=== PATIENT | female | born 1990 | race Caucasian/White ===

== ENCOUNTER 2016-10-29 20:18 | Emergency (ER) | payer OTHER ==
[~2016-10-29] VITALS: Ht 162.6 cm; Wt 56.7 kg
[~2016-10-29 20:18] MED LIST: CLINDAMYCIN HC150 MG ORAL; IBUPROFEN600 MG ORAL; LOTRISONE CREAM15 GM TP; NKM; PERCOCET 5-3251 EACH ORAL; ZOFRAN4 M3 ORAL
[2016-10-29] MEDS ORDERED: Dicyclomine HCl 10mg/5ml oral soln ORAL ONE (21:00)
[2016-10-29] MEDS ORDERED: Lidocaine 2% Visc 15ml soln ORAL ONE (21:00)
[2016-10-29] MEDS ORDERED: Mylanta II UD 30ml ORAL ONE (21:00)
[2016-10-29 22:07] LABS: BASOPHILS % (AUTO) 1.3 % (0.0-2.0); EOSINOPHILS % (AUTO) 1.3 % (0.0-3.0); MEAN CORPUSCULAR VOLUME 94 FL (80-99); MEAN PLATELET VOLUME 6.6 FL (6.5-10.1); MONOCYTES % (AUTO) 13.4 % (1.0-10.0); NEUTROPHILS % (AUTO) 37.1 % (45.0-75.0); PLATELET COUNT 277 K/UL (150-450); RED CELL DISTRIBUTION WIDTH 11.8 % (11.6-14.8); WHITE BLOOD COUNT 5.4 K/UL (4.8-10.8)
[2016-10-29 22:11] LABS: APPEARANCE,URINE CLEAR; KETONES,URINE NEGATIVE (NEGATIVE); LEUKOCYTE ESTERASE ,URINE NEGATIVE (NEGATIVE); NITRITE,URINE NEGATIVE (NEGATIVE); PH,URINE 8 (4.5-8.0); PROTEIN,URINE NEGATIVE (NEGATIVE); UROBILINOGEN,URINE NORMAL MG/DL (0.0-1.0)
[2016-10-29 22:16] LABS: PROTHROMBIN TIME 10.9 SEC (9.30-11.50)
[2016-10-29] MEDS ORDERED: BENTYL10 MG ORAL (22:20)
[2016-10-29] MEDS ORDERED: PERCOCET 5-3251 EACH ORAL (22:27)
[2016-10-29 22:28] LABS: ALANINE AMINOTRANSFERASE 18 U/L (3-33); ALBUMIN/GLOBULIN RATIO 1.9 (1.0-2.7); ANION GAP 14 (5-15); ASPARTATE AMINO TRANSFERASE 19 U/L (5-40); CALCIUM 9.9 mg/dL (8.6-10.2); CARBON DIOXIDE 26 mEQ/L (20-30); CHLORIDE 96 mEQ/L (98-107); CREATININE 0.7 mg/dL (0.5-0.9); GLOMERULAR FILTRATION RATE > 60 mL/min (>60); HEMOLYSIS 6; LIPASE 34 U/L (< 60); POTASSIUM 3.7 mEQ/L (3.4-4.9); SODIUM 136 mEQ/L (135-145)
[2016-10-29 22:45] VITALS: BP 94/47
--- NOTE | 2016-10-29 22:46 | Emergency Room Report ---
History of Present Illness General Chief Complaint: Abdominal Pain Source: Patient Present Illness HPI Patient is a 25-year-old female presented after increased abdominal pain. Patient gradual onset of symptoms of the past few weeks. Patient had the reported increased pain with food.. She prior history of gallstones. Patient presented to have reevaluation. The patient not having subjective. She had not been vomiting. She reported having some nausea. She been taking Percocet for pain. Allergies: Coded Allergies: ACETAMINOPHEN (Verified Allergy, Mild, Hives, 07/25/13) HYDROCODONE (Verified Allergy, Mild, Hives, 07/25/13) MORPHINE (Verified Allergy, Mild, Hives, 07/25/13) PENICILLINS (Verified Allergy, Mild, Hives, 07/25/13) Patient History Past Medical History: see triage record Last Menstrual Period: A MONTH AGO Now: No : 0 Para: 0 Reviewed Nursing Documentation: PMH: Agreed, PSxH: Agreed Review of Systems All Other Systems: negative except mentioned in HPI Physical Exam Vital Signs Date Time Temp Pulse Resp B/P Pulse Ox O2 Delivery O2 Flow Rate FiO2 10/29/16 20:39 97.5 73 18 119/70 98 Room Air Sp02 EP Interpretation: reviewed, normal General Appearance: normal inspection, well appearing, no apparent distress, alert, GCS 15 Head: atraumatic ENT: normal ENT inspection, hearing grossly normal, normal voice Neck: normal inspection, full range of motion, supple, no bony tend Respiratory: normal inspection, lungs clear, normal breath sounds, no respiratory distress, no retraction, no wheezing Cardiovascular #1: regular rate, rhythm, no edema Gastrointestinal: normal inspection, normal bowel sounds, non tender, soft, no guarding, no hernia Genitourinary: no CVA tenderness Musculoskeletal: normal inspection, back normal, normal range of motion Neurologic: normal inspection, alert, oriented x3, responsive, advanced manufacturing technician III-XII nml as tested, motor strength/tone normal, speech normal Psychiatric: normal inspection, judgement/insight normal, mood/affect normal Skin: normal inspection, normal color, no rash Medical Decision Making Diagnostic Impression: Primary Impression: Biliary colic ER Course Patient presented for abdominal pain. Differential diagnoses included ischemic bowel, appendicitis, perforated viscus, abdominal aortic aneurysm, inferior myocardial infarction, viral gastroenteritis. Because of complexity of patient' s case laboratory testing and imaging studies were ordered. Laboratory testing was notable for normal white blood count. The patient's liver function tests were unremarkable. There is no to minimal elevation of her bilirubin. The patient was noted to have a gallbladder ultrasound with normal common bile duct there multiple gallstones noted. There is no pericholic fluid. Brown sign was negative.The patient is advised followup with Dr. Rosado for surgical referral. The patient is advised to return if she had having increased jaundice persistent vomiting worsening pain or high fever. Labs Test 10/29/16 21:45 White Blood Count 5.4 K/UL (4.8-10.8) Red Blood Count 3.80 M/UL (4.20-5.40) Hemoglobin 12.1 G/DL (12.0-16.0) Hematocrit 35.7 % (37.0-47.0) Mean Corpuscular Volume 94 FL (80-99) Mean Corpuscular Hemoglobin 32.0 PG (27.0-31.0) Mean Corpuscular Hemoglobin Concent 34.0 G/DL (32.0-36.0) Red Cell Distribution Width 11.8 % (11.6-14.8) Platelet Count 277 K/UL (150-450) Mean Platelet Volume 6.6 FL (6.5-10.1) Neutrophils (%) (Auto) 37.1 % (45.0-75.0) Lymphocytes (%) (Auto) 47.0 % (20.0-45.0) Monocytes (%) (Auto) 13.4 % (1.0-10.0) Eosinophils (%) (Auto) 1.3 % (0.0-3.0) Basophils (%) (Auto) 1.3 % (0.0-2.0) Prothrombin Time 10.9 SEC (9.30-11.50) Prothromb Time International Ratio 1.0 (0.9-1.1) Activated Partial Thromboplast Time 30 SEC (23-33) Urine Color Pale yellow Urine Appearance Clear Urine pH 8 (4.5-8.0) Urine Specific [place] 1.010 (1.005-1.035) Urine Protein Negative (NEGATIVE) Urine Glucose (UA) Negative (NEGATIVE) Urine Ketones Negative (NEGATIVE) Urine Occult Blood Negative (NEGATIVE) Urine Nitrite Negative (NEGATIVE) Urine Bilirubin Negative (NEGATIVE) Urine Urobilinogen Normal MG/DL (0.0-1.0) Urine Leukocyte Esterase Negative (NEGATIVE) Sodium Level 136 mEQ/L (135-145) Potassium Level 3.7 mEQ/L (3.4-4.9) Chloride Level 96 mEQ/L (98-107) Carbon Dioxide Level 26 mEQ/L (20-30) Anion Gap 14 (5-15) Blood Urea Nitrogen 5 mg/dL (7-23) Creatinine 0.7 mg/dL (0.5-0.9) Estimat Glomerular Filtration Rate > 60 mL/min (>60) Glucose Level 96 mg/dL (74-106) Calcium Level 9.9 mg/dL (8.6-10.2) Total Bilirubin 1.4 mg/dL (0.0-1.2) Direct Bilirubin 0.2 mg/dL (0.1-0.3) Aspartate Amino Transf (AST/SGOT) 19 U/L (5-40) Alanine Aminotransferase (ALT/SGPT) 18 U/L (3-33) Alkaline Phosphatase 57 U/L (35-104) Total Protein 8.0 g/dL (6.6-8.7) Albumin 5.3 g/dL (3.5-5.2) Globulin 2.7 g/dL Albumin/Globulin Ratio 1.9 (1.0-2.7) Lipase 34 U/L (< 60) Last Vital Signs Date Time Temp Pulse Resp B/P Pulse Ox O2 Delivery O2 Flow Rate FiO2 10/29/16 20:39 97.5 73 18 119/70 98 Room Air Status: improved Disposition: HOME, SELF-CARE Condition: Stable Scripts Oxycodone/Acetaminophen 5-325* (PERCOCET 5-325 MG TABLET*) 1 Each Tablet 1 TAB ORAL Q4H Y for For Pain, #10 TAB 0 Refills Prov: Jose Busch 10/29/16 Dicyclomine Hcl* (BENTYL*) 10 Mg Capsule 10 MG ORAL FOUR TIMES A DAY, #30 CAP Prov: Jose Busch 10/29/16 Referrals: FREDERICK ROSADO MD (PCP) Patient Instructions: Biliary Colic Jose Busch Oct 29, 2016 22:46
[2016-10-29 22:47] VITALS: BP 94/47
[2016-10-29 22:49] LABS: BILIRUBIN,DIRECT 0.2 mg/dL (0.1-0.3)
--- NOTE | 2016-10-30 10:39 | Diagnostic Imaging Report ---
Indication:Abdominal pain Technique: Grayscale and duplex Doppler imaging of the abdomen performed. Comparison: None Findings: Gallbladder is distended and there are gallstones present. Sonographic Brown's is positive per technologist. CBD is 5 mm. The liver, demonstrated part of the pancreas, aorta and IVC, both kidneys, spleen appear unremarkable. There is no biliary ductal dilatation identified. Doppler evaluation of the main portal vein shows patency. There is no ascites. No hydronephrosis seen. Impression: Gallstones with positive sonographic Brown's sign suggestive of cholecystitis. Please correlate clinically.
== END 2016-10-29 22:55 | disposition home or self-care (01) ==
LOC: EMR 20:57
DX: K80.50 Calculus of bile duct without cholangitis or cholecystitis without obstruction (principal); Z88.6 Allergy status to analgesic agent; Z88.0 Allergy status to penicillin
CPT/HCPCS: 36415; 76700; 80053; 81003; 81025; 82248; 83690; 85025; 85610; 85730; 99284

== ENCOUNTER 2017-08-05 09:57 | Emergency (ER) | payer OTHER ==
[~2017-08-05] VITALS: Ht 160 cm; Wt 56.7 kg
[~2017-08-05 09:57] MED LIST changes: +ALBUTEROL SULF8.5 GM INH; +AZITHROMYCIN250 MG ORAL; +BENTYL10 MG ORAL; +DOXYCYCLINE MO100 MG ORAL; +IBUPROFEN600 MG PO; +MEDROL DOSEPAK4 MG ORAL; +NORCO 5-325 TA1 EACH ORAL; +PREVACID30 MG ORAL; +PROMETHAZINE-D118 ML ORAL
[2017-08-05 10:20] VITALS: BP 103/68
[2017-08-05] MEDS ORDERED: Lidocaine 1% MPF 10mg/ml 5ml INJ ONE (10:30)
[2017-08-05] MEDS ORDERED: LET 3ml Soln TOPIC ONE ×3 (10:30→11:15)
--- NOTE | 2017-08-05 13:22 | Emergency Room Report ---
History of Present Illness General Chief Complaint: Pain Source: Patient Present Illness HPI Patient with swelling, redness, pain and pus from big toe. Pain was worse yesterday. Throbbing rated 2/10 now, not radiate. Worse when standing. Still with redness and swelling. Tetanus UTD. No fevers, chills, not , no dysuria, diabetes/polies, dyspnea, chest pain, joint pain Has to be on feet and moving heavy objects at work. 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) Last Menstrual Period: 07/05/17 Now: No Reviewed Nursing Documentation: PMH: Agreed; PSxH: Agreed Review of Systems All Other Systems: negative except mentioned in HPI Physical Exam Vital Signs Date Time Temp Pulse Resp B/P (MAP) Pulse Ox O2 Delivery O2 Flow Rate FiO2 08/05/17 10:15 97.8 62 17 103/68 98 Room Air 97.9 Sp02 EP Interpretation: reviewed, normal General Appearance: well appearing, no apparent distress, GCS 15 Head: normocephalic, atraumatic Eyes: bilateral eye normal inspection, bilateral eye PERRL ENT: hearing grossly normal, normal voice Neck: full range of motion, supple Respiratory: no respiratory distress, speaking full sentences Cardiovascular #1: regular rate, rhythm Cardiovascular #2: 2+ radial (L), 2+ dorsalis pedis (L) Gastrointestinal: normal inspection Musculoskeletal: back normal, normal range of motion, no calf tenderness, inflammation, swelling - base of left big toe nail Neurologic: alert, normal gait, grossly normal Psychiatric: mood/affect normal, anxious Skin: warm/dry, other - erythema base of toe Procedures Incision and Drainage Incision and Drainage : Consent: Verbal Blade Size: 11 - and wedge resection of nail I & D Procedure: betadine prep, sterile drapes applied, sterile dressing applied, gauze wick placed Wound Location: other - L big toe Wound's Depth, Shape: superficial Wound Explored: contaminated - pus drained - small amount Anesthesia: 1% Lidocaine - digital block after LET Volume Anesthetic (ccs): 3 Patient Tolerated: Well Complications: None Medical Decision Making Diagnostic Impression: Primary Impression: Paronychia ER Course Patient with paronychia L great toe. Needs I and D. Also needs oral antibiotics with MRSA coverage. Wedge resection performed. Drains placed. Tolerated well. Discussed further care. If unable to remove drains invited to return. Patient stable for outpatient observation and treatment. Last Vital Signs Date Time Temp Pulse Resp B/P (MAP) Pulse Ox O2 Delivery O2 Flow Rate FiO2 08/05/17 13:57 97.8 72 18 97/64 98 Room Air 97.8 Status: improved Disposition: HOME, SELF-CARE Condition: Improved Scripts Tramadol Hcl* (ULTRAM*) 50 Mg Tablet 50 MG ORAL Q6H PRN for For Pain, #10 TAB 0 Refills Prov: Remy Roberson M.D. 08/05/17 Ibuprofen* (MOTRIN*) 600 Mg Tablet 600 MG ORAL Q6H PRN for For Pain, #30 TAB Prov: Remy Roberson M.D. 08/05/17 Bacitracin (Bacitracin) 28.4 Gm Oint...g. 1 APPLIC TOPIC BID, #10 GM Prov: Remy Roberson M.D. 08/05/17 Trimethoprim/Sulfamethoxazole 160/800* (BACTRIM DS TABLET*) 1 Each Tablet 1 TAB ORAL Q12H, #14 TAB 0 Refills Prov: Remy Roberson M.D. 08/05/17 Referrals: [facility],REFERRING (PCP) Remy Roberson M.D. Aug 05, 2017 13:22
[2017-08-05] MEDS ORDERED: IBUPROFEN600 MG ORAL (13:28)
[2017-08-05] MEDS ORDERED: BACTRIM DS TAB1 EAC1 ORAL (13:28)
[2017-08-05] MEDS ORDERED: TRAMADOL HCL50 MG ORAL (13:28)
[2017-08-05] MEDS ORDERED: BACITRACIN15 GM TOPIC (13:28)
[2017-08-05 13:50] VITALS: BP 97/64
[2017-08-05 13:57] VITALS: BP 97/64
== END 2017-08-05 13:57 | disposition home or self-care (01) ==
LOC: EMR 11:09
DX: L03.032 Cellulitis of left toe (principal); Z88.0 Allergy status to penicillin; Z88.5 Allergy status to narcotic agent; Z88.6 Allergy status to analgesic agent
CPT/HCPCS: 10060; 99284